=== PATIENT | male | born 1970 | race Caucasian/White ===

== ENCOUNTER 2024-06-01 11:47 | Emergency (ER) | payer OTHER, SELFPAY ==
--- NOTE | ~2024-06-01 | XR_ITS ---
EXAMINATION: XR hand LT min 3V DATE: 06/01/2024 12:21 INDICATION: Left hand fourth digit injury. TECHNIQUE: 3 views of left hand were obtained. COMPARISON: None. FINDINGS: Bone alignment is normal. No fracture. 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 IMPRESSION: 1. No fracture. Reviewed, dictated and finalized at location A. IMPRESSION: 1. No fracture.
[2024-06-01 11:48] VITALS: BP 149/90; PULSE 66; RESP 20; TEMP 37; O2SAT 98
--- NOTE | 2024-06-01 12:02 | PC.NURSE ---
Patient able to remove wedding band it reminds in patient custody.
--- NOTE | 2024-06-01 12:04 | PC.NURSE ---
Assisted pt w/ removal of wedding ring. Placed lube on finger and used a 4x4 for religion department chair. Placed hand in bedadine/saline solution for cleansing
--- NOTE | 2024-06-01 12:29 | ED.UPPEXIN ---
HPI - Extremity Injury (Upper) General Chief Complaint: Extremity Injury, Upper Stated Complaint: left ring finger injury Time Seen by Provider: 06/01/24 11:49 Source: patient Mode of arrival: ambulatory Limitations: no limitations History of Present Illness HPI narrative: this is a 53-year-old male that his 4th finger in trailer hitch causing a nail injury avulsion injury to his 4th nail pain level is tolerable currently not bleeding up-to-date with his tetanus no other injuries noted complaint: injury to: left Onset (ago): hour(s) Other Extremity Injury: Left: fingers ( Finger nail avulsion) Handedness: right Place: outdoors Exacerbating factors: movement of extremity Context: direct blow Related Data Home Medications Medication Instructions Recorded Confirmed Unable to Obtain Home Medications 06/01/24 06/01/24 Allergies Allergy/AdvReac Type Severity Reaction Status Date / Time No Known Allergies Allergy Verified 06/01/24 11:49 Review of Systems Review of Systems: All systems reviewed & are unremarkable except as noted in HPI and below PMFSH Past Medical History Medical History HTN (hypertension) Exam Const: General: healthy appearing, no acute distress and alert Nutritional Appearance: well nourished Orientation/consciousness: patient oriented x3 Limitations: no limitations Resp: Effort & Inspection: normal respiratory effort Auscultation: clear to auscultation bilaterally Cardio: Rate: regular rate Rhythm: regular rhythm GI: GI Palp: Yes Soft to palpation Auscultation: normal bowel sounds Skin: Other: avulsion injury of the 4th left finger nail Neuro: General: patient oriented x3 and moves all extremities Course Course Emergency Course: x-ray performed shows no acute fractures or area was cleaned evaluated evaluated for debris, all applied ears foreign /triple antibiotic ointment. Vital Signs Vital signs: Vital Signs Temperature 37.0 C 06/01/24 11:48 Pulse Rate 66 06/01/24 11:48 Respiratory Rate 06/01/24 11:48 Blood Pressure 149/90 H 06/01/24 11:48 Pulse Oximetry 98 06/01/24 11:48 Oxygen Delivery Room Air 06/01/24 11:48 Temperature 37.0 C 06/01/24 11:48 Pulse Rate 66 06/01/24 11:48 Respiratory Rate 20 06/01/24 11:48 Blood Pressure 149/90 H 06/01/24 11:48 Pulse Oximetry 98 06/01/24 11:48 Oxygen Delivery Room Air 06/01/24 11:48 Critical Care Time Critical Care Time Critical Care Time: No Discharge Plan Discharge Clinical Impression: Avulsion of nail Patient Disposition: Home, Self-Care Condition: Stable Instructions: Antibiotic Form, Nail Avulsion (ED) Additional Instructions: can apply the Neosporin daily x3 days, take Tylenol or Motrin as needed for pain follow up with primary if symptoms persist or worsen. Prescriptions: No Action Unable to Obtain Home Medications Follow-up/Referrals: Jon Stovall M.D. [Primary Care Provider] - Time of Disposition: 12:33
[2024-06-01 12:43] VITALS: BP 145/97; PULSE 65; RESP 17; TEMP 37; O2SAT 100
== END 2024-06-01 12:43 | disposition home or self-care (01) ==
LOC: CHSED 12:37
PROVIDERS: Emergency Provider Emergency Medicine; PCP Family Medicine
DX: S61.305A Unspecified open wound of left ring finger with damage to nail, initial encounter (principal); I10 Essential (primary) hypertension; W22.09XA Striking against other stationary object, initial encounter
CPT/HCPCS: 73130; 99283